=== PATIENT | male | born 1945 | race Caucasian/White ===

== ENCOUNTER 2023-07-07 12:04 | Outpatient (REF) | payer MEDICARE, SELFPAY ==
[2023-07-07 12:32] VITALS: BMI 25.0
[2023-07-07 12:33] VITALS: BP 122/57; PULSE 75; RESP 16; TEMP 36; O2SAT 97
[2023-07-07 13:44] VITALS: BP 162/74; PULSE 76; RESP 16; O2SAT 98
== END 2023-07-07 12:05 | disposition home or self-care (01) ==
LOC: HO.MS 12:04
PROVIDERS: PCP Internal Medicine; Visit Provider Ophthalmology
PROC: (CPT 67700; principal; 2023-07-07 14:00)
DX: H00.11 Chalazion right upper eyelid (principal); H00.12 Chalazion right lower eyelid
CPT/HCPCS: 67700 ×2

== ENCOUNTER 2024-08-09 10:31 | Outpatient (REF) | payer MEDICARE, SELFPAY ==
[2024-08-09 10:35] VITALS: BP 138/67; PULSE 72; RESP 16; TEMP 35.7; O2SAT 99; BMI 26.1
== END 2024-08-09 10:32 | disposition home or self-care (01) ==
LOC: HO.MS 10:31
PROVIDERS: PCP Internal Medicine; Visit Provider Ophthalmology
PROC: (CPT 67800; principal; 2024-08-09 13:00)
DX: H00.14 Chalazion left upper eyelid (principal)
CPT/HCPCS: 67800; J2004

== ENCOUNTER 2024-11-22 12:00 | Outpatient (REF) | payer MEDICARE, SELFPAY ==
[2024-11-22 12:35] VITALS: BP 136/64; PULSE 77; RESP 16; TEMP 35.7; O2SAT 96; BMI 26.5
== END 2024-11-22 12:01 | disposition home or self-care (01) ==
LOC: HO.MS 12:00
PROVIDERS: PCP Internal Medicine; Visit Provider Ophthalmology
PROC: (CPT 67800; principal; 2024-11-22 14:50)
DX: H00.11 Chalazion right upper eyelid (principal)
CPT/HCPCS: 67800; J2004